=== PATIENT | male | born 1975 | race Asian ===

== ENCOUNTER 2020-11-18 19:11 | Emergency (ER) | payer MEDICAID ==
[~2020-11-18] VITALS: Ht 170.2 cm; Wt 60.2 kg
[2020-11-18 20:09] VITALS: BP 132/80
== END 2020-11-18 22:53 | disposition home or self-care (01) ==
LOC: ER 19:11
DX: K94.03 Colostomy malfunction (principal); F15.10 Other stimulant abuse, uncomplicated; I49.9 Cardiac arrhythmia, unspecified
CPT/HCPCS: 93005; 99283